=== PATIENT | female | born 1945 ===

== ENCOUNTER 2020-11-18 05:31 | Day surgery (SDC) | payer OTHER ==
[~2020-11-18 05:31] MED LIST: FORTAMET500 MG PO; GABAPENT PO; LIPITOR20 MG PO; PREGABALIN100 MG PO; ZESTRIL20 MG PO
== END 2020-11-18 10:25 | disposition home or self-care (01) ==
LOC: CIR.AMB 05:31
PROVIDERS: ATTEND Orthopaedic Surgery Hand Surgery
DX: G56.01 Carpal tunnel syndrome, right upper limb (principal); Z20.822 Contact with and (suspected) exposure to COVID-19